=== PATIENT | female | born 1930 | race Caucasian/White ===

== ENCOUNTER → 2016-09-17 | Outpatient (CLI) | payer OTHER | LOC: FIMAGING 10:31 | PROVIDERS: ATTEND Internal Medicine Rheumatology | DX: Z13.820 Encounter for screening for osteoporosis (principal); M81.0 Age-related osteoporosis without current pathological fracture; Z78.0 Asymptomatic menopausal state; Z82.62 Family history of osteoporosis; Z79.890 Hormone replacement therapy ==

== ENCOUNTER 2016-10-10 10:45 | Emergency (ER) | payer OTHER ==
[2016-10-10 10:53] VITALS: TEMP 98.4; O2SAT 94
--- NOTE | 2016-10-10 11:03 | EDPHY ---
H & P Stated Complaint: Mechanical Fall with R eyebrow laceration HPI/ROS: CHIEF COMPLAINT: Fall, head injury, laceration HISTORY OF PRESENT ILLNESS: Patient was walking into a restaurant this morning when she tripped and fell, striking her head. No loss of conscious. She sustained a laceration over the right eyebrow. She has no complaints at this time. Specifically no headache or neck pain. No chest or back pain. No abdominal pain. No injuries to the arms or legs. She arrives by EMS and is seen at time of arrival. She does not take any anticoagulants. She has no nausea or vomiting. No visual changes. No neck pain or stiffness. No other associated complaints or modifying factors. REVIEW OF SYSTEMS: Ten systems reviewed and are negative unless otherwise noted in the HPI PAST MEDICAL HISTORY: Reviewed. No use of anticoagulants SOCIAL HISTORY: Lives independently FAMILY HISTORY: Noncontributory EXAMINATION General Appearance: Alert, no distress Head: normocephalic. There is a laceration over the right eyebrow with hematoma. Mild venous bleeding. No pulsatile flow. No exposure of the galea aponeurosis. No Del Cid sign. No raccoon eyes. Eyes: Pupils equal and round, no conjunctival pallor or injection. No nystagmus. EOMs intact. ENT, Mouth: Mucous membranes moist. Uvula midline. Airway patent. Neck: Normal inspection, supple, non-tender. No crepitus, step-off or deformity. Respiratory: Lungs are clear to auscultation. No wheezing or crackles Cardiovascular: Regular rate and rhythm. No murmur Gastrointestinal: Abdomen is soft and nontender Back: non-tender, no bony abnormalities Neurological: GCS 15. Cranial nerves 2-12 grossly intact. A&O, nonfocal, normal gait. No dysmetria. No pronator drift. Skin: Warm and dry, no rash. There are 2 lacerations over the right eyebrow. They are both curvilinear. The the lower laceration is approximately 2.5 cm and involves the subcu. No exposure of the galea. The upper laceration is approximately 1.5 cm and involves the subcutaneous tissue. No exposure of the galea. Extremities: Nontender, no pedal edema. Symmetric range of motion all 4 limbs. Psychiatric: Mood and affect normal DIFFERENTIAL DIAGNOSES: Including but not limited to closed head injury, hematoma, forehead laceration, intracranial hemorrhage, skull fracture, cervical sprain, cervical fracture MDM: 10:45 a.m. Mechanical fall with closed head injury, forehead laceration, 4 hematoma. Given the patient's age of ordered CT scans of the head and neck to rule out occult fracture or intracranial hemorrhage. She is resting comfortably no acute distress. 12:00 p.m. Mechanical fall with lacerations over the right eye breast. These have been repaired without complication. CT scans of the head and cervical spine have been performed and the official interpretations are pending at this time. 12:07 p.m. Notified by radiologist Dr. Krishnamurthy. CT scans of the head and cervical spine reveal no acute findings. There are chronic changes as noted. 12:20 p.m. Mechanical fall with right for hematoma lacerations. Lacerations have been repaired. She is fully neuro intact. She has ambulated to the restroom without difficulty. CT scans are normal. Discharged home with routine wound care. Contact primary care physician today for follow-up tomorrow or Friday for recheck. Return there or here in 5-7 days for suture removal. Return sooner for worsening pain, nausea, vomiting or visual changes. She is discharged home stable condition PROCEDURE: Laceration repair Consent: Verbal Location: Right eyebrow Length of repair: 4 cm total Complexity: Simple Layer involvement: Single Anesthesia: Local, 1% lidocaine with epinephrine, 7 mL Irrigation: Extensive Debridement: None Procedure description: Following good anesthesia, the wound was copiously irrigated. Wound bed was explored and there is no foreign body noted. Wound borders were approximated well with good hemostasis. Tolerated well without complication. Suture/Staple material: 6-0 Prolene, 9 simple interrupted sutures Wound care: Routine as discussed Suture/Staple removal: 5-7 Days SUPERVISION: This patient was independently evaluated without direct examination by the attending physician. Case was discussed with attending physician. Source: Patient, Family, EMS Exam Limitations: No limitations - Personal History Current Tetanus/Diphtheria Vaccine: Yes Current Tetanus Diphtheria and Acellular Pertussis (TDAP): Yes Tetanus Vaccine Date: 2008 - Medical/Surgical History Hx Asthma: No Hx Chronic Respiratory Disease: Yes Hx Diabetes: No Hx Cardiac Disease: No Hx Renal Disease: No Hx Cirrhosis: No Hx Alcoholism: No Hx HIV/AIDS: No Hx Splenectomy or Spleen Trauma: No Other PMH: spinal fx, wore a brace x 3 mths, dementia, pnuemonia, copd, hypothyroid, bladder cancer, inc of urine, osteoporosis, shingles, arthritis - Social History Smoking Status: Former smoker Constitutional: Initial Vital Signs Temperature (C) 98.4 F 10/10/16 10:51 Heart Rate 76 10/10/16 10:51 Respiratory Rate 16 10/10/16 10:51 Blood Pressure 182/90 H 10/10/16 10:51 O2 Sat (%) 94 10/10/16 10:51 O2 Delivery Mode Room Air Allergies/Adverse Reactions: Penicillins Allergy (Verified 10/10/16 10:50) Home Medications: Medication Instructions Recorded Ascorbic Acid [Vitamin C 500 mg 500 mg PO HS 04/29/12 (*)] Aspirin [Aspirin 81mg (*)] 81 mg PO DAILY 04/29/12 Calcium Carbonate [Oyster Shell 500 mg PO BID 04/29/12 Calcium 500 mg (*)] Donepezil HCl [Aricept 5 MG (*)] 10 mg PO HS 04/29/12 Glucosam/Chondr/Collagn/Hyalur 1 each PO DAILY 04/29/12 [Glucosamine & Chondroitin Cap] Herbals/Supplements -Info Only 1 each PO AD 04/29/12 Hydroxychloroquine Sulfate 200 mg PO BID 04/29/12 [Plaquenil 200 mg (*)] Levothyroxine [Synthroid 137 mcg 137 mcg PO DAILY06 04/29/12 (*)] Memantine HCl [Namenda 5 mg (*)] 10 mg PO BID 04/29/12 Multivitamins [Multivitamin (*)] 1 each PO DAILY 04/29/12 Vitamin B Complex [B Complex] 1 each PO HS 04/29/12 Vitamin E [Vitamin E 400 units] 400 unit PO DAILY 04/29/12 Meclizine HCl [Meclizine HCl 25 mg 25 mg PO BID 06/18/12 (RX,OTC)] Osteoarthritis Medication Unknown 1 each PO .QMONTH 05/19/14 Cholecalciferol Vit D3 [Vitamin D3 1,000 units PO BID 05/30/14 (*)] Psyllium Husk (with Sugar) 1 each PO DAILY 05/30/14 [Metamucil Packet] predniSONE 20 mg PO DAILY 02/16/15 Hydrocodone/APAP 5/325 [[place] 1 - 2 each PO Q6 PRN #20 tab 01/26/15 5/325] Medical Decision Making - Diagnostics Imaging Results: Imaging Impressions Cervical Spine CT 10/10/16 10:50 Impression: 1. No acute posttraumatic intracranial abnormality identified. 2. Right frontal scalp hematoma. 2. CT Cervical Spine Without Contrast, 11:31 AM History: Trauma. Tripped and fall this morning. Neck pain. Technique: Multislice helical CT through the cervical spine without contrast from the skull base to T1. Soft tissue and bone evaluation is performed. Sagittal and coronal reconstructions are obtained and reviewed. Dose reduction techniques were utilized. Findings: Cervical alignment is anatomic. There is likely degenerative mild spondylolisthesis at C7-T1. No fracture or dislocation is identified. The relationship between skull base and C1 is normal. The C1-C2 articulation is normally aligned. The odontoid process is intact. There is multilevel degenerative disk disease between C3 and C7 with fusion of C4-C5. Facet joints are normally aligned. The cervical thoracic junction is normally aligned. Soft tissue window evaluation does not show evidence of epidural or prevertebral hematoma. Incidentally noted is bilateral upper lobe emphysema and atherosclerotic calcification. Impression: No acute posttraumatic abnormality identified. Results called to Hector De Guzman at 12:06 PM. Final results are concordant with the initial interpretation. General information for patients regarding this examination can be found at [email or web address]. If you have questions or comments about this report, please contact me at (hospital) or [phone] (cell). Head CT 10/10/16 10:50 Impression: 1. No acute posttraumatic intracranial abnormality identified. 2. Right frontal scalp hematoma. 2. CT Cervical Spine Without Contrast, 11:31 AM History: Trauma. Tripped and fall this morning. Neck pain. Technique: Multislice helical CT through the cervical spine without contrast from the skull base to T1. Soft tissue and bone evaluation is performed. Sagittal and coronal reconstructions are obtained and reviewed. Dose reduction techniques were utilized. Findings: Cervical alignment is anatomic. There is likely degenerative mild spondylolisthesis at C7-T1. No fracture or dislocation is identified. The relationship between skull base and C1 is normal. The C1-C2 articulation is normally aligned. The odontoid process is intact. There is multilevel degenerative disk disease between C3 and C7 with fusion of C4-C5. Facet joints are normally aligned. The cervical thoracic junction is normally aligned. Soft tissue window evaluation does not show evidence of epidural or prevertebral hematoma. Incidentally noted is bilateral upper lobe emphysema and atherosclerotic calcification. Impression: No acute posttraumatic abnormality identified. Results called to Hector De Guzman at 12:06 PM. Final results are concordant with the initial interpretation. General information for patients regarding this examination can be found at [email or web address]. If you have questions or comments about this report, please contact me at [phone] (hospital) or [phone] (cell). Departure - Departure Disposition: Home, Routine, Self-Care Clinical Impression: Forehead laceration Qualifiers: Encounter type: initial encounter Qualified Code(s): S01.81XA - Laceration without foreign body of other part of head, initial encounter Traumatic hematoma of forehead Qualifiers: Encounter type: initial encounter Qualified Code(s): S00.83XA - Contusion of other part of head, initial encounter Closed head injury Qualifiers: Encounter type: initial encounter Qualified Code(s): S09.90XA - Unspecified injury of head, initial encounter Condition: Good Instructions: Care For Your Stitches (ED), Laceration (ED), Fall Prevention for Older Adults (ED) Additional Instructions: Follow-up with primary care physician tomorrow Friday for wound recheck. Return here or there in 5-7 days for suture removal. Return here for worsening headache, visual changes, vomiting Referrals: Unknown,Unknown [Unknown] - As per Instructions Carla dAam MD [Primary Care Provider] - As per Instructions
[2016-10-10 12:34] VITALS: BP 170/94; PULSE 70; RESP 14
== END 2016-10-10 12:32 | disposition home or self-care (01) ==
LOC: EDUNIT#
PROC: 0HQ1XZZ Repair Face Skin, External Approach (ICD-10-PCS; principal; 2016-10-10)
DX: S01.81XA Laceration without foreign body of other part of head, initial encounter (principal); J44.9 Chronic obstructive pulmonary disease, unspecified; Z85.51 Personal history of malignant neoplasm of bladder; Z87.891 Personal history of nicotine dependence; Z79.82 Long term (current) use of aspirin; W01.198A Fall on same level from slipping, tripping and stumbling with subsequent striking against other object, initial encounter; Y92.511 Restaurant or cafe as the place of occurrence of the external cause; Y99.8 Other external cause status; Y93.01 Activity, walking, marching and hiking